=== PATIENT | female | born 1990 | race Hispanic/Latino ===

== ENCOUNTER 2021-10-03 08:24 | Outpatient (CLI) | payer OTHER | END 2021-10-03 08:25 | disposition home or self-care (01) | LOC: BICULT 08:24 | PROVIDERS: ATTEND Family Medicine | DX: O34.12 Maternal care for benign tumor of corpus uteri, second trimester (principal); Z3A.23 23 weeks gestation of pregnancy | CPT/HCPCS: 76805 ==